=== PATIENT | male | born 1960 | race Caucasian/White ===

== ENCOUNTER 2019-05-31 16:39 | Emergency (ER) | payer OTHER ==
[~2019-05-31 16:39] MED LIST: ISOVUE-370 76%-LOCM 1 ML ONE
[2019-05-31 17:13] LABS: #Lymphocytes 1.4 thou/uL (1.20-3.40); #Monocytes 0.5 thou/uL (0.11-0.59); #Neutrophils 9.1 thou/uL (1.40-6.50); %Basophils 0.2 % (0.0-1.0); %Eosinophils 0.1 % (0.0-10.0); %Lymphocytes 12.6 % (21.0-51.0); %Monocytes 4.6 % (0.0-10.0); %Neutrophils 82.5 % (42.0-75.0); Hemoglobin 12.9 g/dL (14.0-18.0); Mean Corpuscular Hemoglobin 27.8 pg (27.0-31.0); Mean Corpuscular Volume 84.5 fL (78.0-98.0); Mean Platelet Volume 7.6 fL (7.4-10.4); Platelet Count 284 thou/uL (130-400); RBC Distribution Width 12.4 % (11.5-14.5); Red Blood Cell (RBC) Count 4.63 mill/uL (4.70-6.10)
[2019-05-31 17:34] LABS: ALT (SGPT) 62 U/L (8-55); AST (SGOT) 40 U/L (5-34); Albumin 4.2 g/dL (3.5-5.0); Alkaline Phosphatase 74 U/L (40-110); Anion Gap 15 mmol/L (10-20); BUN (Urea Nitrogen) 10 mg/dL (8.4-25.7); Bilirubin, Total 0.8 mg/dL (0.2-1.2); Calc. Creatinine Clearance 0 mL/min (70-130); Calcium 9.5 mg/dL (7.8-10.44); Carbon Dioxide 22 mmol/L (22-29); Chloride 102 mmol/L (98-107); Estimated GFR-MDRD Greater than 90; Globulin 4.1 g/dL (2.4-3.5); Glucose 159 mg/dL (70-105); Lipase 8 U/L (8-78); Potassium 3.4 mmol/L (3.5-5.1); Protein, Total 8.3 g/dL (6.0-8.3); Sodium 136 mmol/L (136-145)
[2019-05-31] MEDS ORDERED: Morphine 4 MG/ML VIAL ONE ×3 (19:03→23:12)
[2019-05-31] MEDS ORDERED: Ondansetron PF 4 MG/2 ML Vial ONE (19:03)
--- NOTE | 2019-05-31 20:22 | CT ---
CT abdomen and pelvis with IV contrast. Oral contrast was not administered. INDICATIONS: Abdominal pain and vomiting COMPARISON: None FINDINGS: Lung bases are clear 4 cm cyst left lobe of liver. Liver, spleen, and pancreas otherwise unremarkable. Stomach and duodenum appear unremarkable. Adrenal glands appear normal. Kidneys appear unremarkable. Collecting structures and urinary bladder appear unremarkable. Small bowel loops are normal caliber and exhibit normal fold pattern. Appendix is identified and appears unremarkable. There is diffuse dilatation of the colon to the level of the mid sigmoid where there is a focal area of luminal narrowing and mucosal prominence. Aorta is normal caliber. No evidence of retroperitoneal or mesenteric adenopathy. Pelvic structures appear unremarkable. Subcutaneous tissues, abdominal wall, and muscular structures appear unremarkable. Osseous structures appear unremarkable. IMPRESSION: Diffuse dilatation of the colon to the level of the mid sigmoid. There is focal luminal narrowing and mucosal prominence at this location. Neoplasm or other mucosal abnormality should be excluded with colonoscopy.
[2019-05-31 21:21] LABS: Bacteria/HPF None Seen HPF (None Seen); Bilirubin Negative (Negative); Blood, Urine Negative (Negative); Clarity Clear (Clear); Glucose, Urine (Dipstick) Normal (Negative); Leukocyte Negative Leu/uL (Negative); Mucous/LPF 2+ LPF (<2+); Nitrite Negative (Negative); Protein, Urine (Dipstick) 50 mg/dL (Neg-Trace); RBC/HPF 0-3 HPF (0-3); Squamous Epithelial 0-3 HPF (0-3); WBC/HPF 0-3 HPF (0-3)
== END 2019-05-31 23:17 | disposition short-term general hospital (02) ==
LOC: ERS 16:39
DX: K56.699 Other intestinal obstruction unspecified as to partial versus complete obstruction (principal); K63.89 Other specified diseases of intestine; I10 Essential (primary) hypertension; Z79.899 Other long term (current) drug therapy
CPT/HCPCS: 36415; 74177; 80053; 81003; 81015; 83690; 84484; 85025; 93005; 96361; 96374; 96375; 96376; J2270; J2405; Q9966